=== PATIENT | male | born 1945 | race Caucasian/White ===

== ENCOUNTER 2020-01-01 06:44 | Day surgery (SDC) | payer MEDICARE ==
[~2020-01-01] VITALS: Ht 165.1 cm; Wt 89.6 kg
[2020-01-01] MEDS ORDERED: SODIUM CHLORIDE 0.9% 1,000 ML IV SCH (08:00)
[2020-01-01] MEDS ORDERED: HYDR25TA6 PO (08:26)
[2020-01-01] MEDS ORDERED: PRED5TAB19 PO (08:26)
[2020-01-01] MEDS ORDERED: TACR1CAP5 PO (08:26)
[2020-01-01] MEDS ORDERED: ATOR20TA37 PO (08:26)
[2020-01-01] MEDS ORDERED: metoprolol PO (08:26)
[2020-01-01] MEDS ORDERED: sodium bicarb PO (08:26)
[2020-01-01] MEDS ORDERED: TAMS-11 PO (08:26)
[2020-01-01] MEDS ORDERED: GABA600T7 PO (08:26)
[2020-01-01] MEDS ORDERED: LOSA100T14 PO (08:26)
[2020-01-01] MEDS ORDERED: HUM100VI6 SQ (08:26)
[2020-01-01] MEDS ORDERED: mycophenolate PO (08:26)
[2020-01-01] MEDS ORDERED: AMLO-150 PO (08:26)
[2020-01-01 08:27] VITALS: BP 163/73
[2020-01-01 08:39] LABS: INTERNATIONAL NORMALIZED RATIO 0.94 (0.93-1.1); PROTHROMBIN TIME 9.7 Seconds (9.6-11.5)
[2020-01-01] MEDS ORDERED: NALOXONE 1 MG/ML, 2ML ONE (09:31)
[2020-01-01] MEDS ORDERED: FENTANYL PF 100 MCG/2ML ONE (09:31)
[2020-01-01] MEDS ORDERED: MIDAZOLAM 1 MG/ML, 5ML ONE (09:31)
[2020-01-01] MEDS ORDERED: FLUMAZENIL 0.1 MG/1 ML, 5ML ONE (09:31)
== END 2020-01-01 11:30 | disposition home or self-care (01) ==
LOC: OUT 06:44 → EDSTATUS 09:00 → OUT 11:30
PROVIDERS: ATTEND Internal Medicine Nephrology
DX: R80.9 Proteinuria, unspecified (principal); E11.22 Type 2 diabetes mellitus with diabetic chronic kidney disease; I12.9 Hypertensive chronic kidney disease with stage 1 through stage 4 chronic kidney disease, or unspecified chronic kidney disease; N18.4 Chronic kidney disease, stage 4 (severe); D63.1 Anemia in chronic kidney disease; N25.81 Secondary hyperparathyroidism of renal origin; E78.5 Hyperlipidemia, unspecified; E55.9 Vitamin D deficiency, unspecified; Z79.4 Long term (current) use of insulin; Z79.899 Other long term (current) drug therapy; Z85.46 Personal history of malignant neoplasm of prostate; Z87.891 Personal history of nicotine dependence; Z88.8 Allergy status to other drugs, medicaments and biological substances; Z94.0 Kidney transplant status
CPT/HCPCS: 36415; 50200; 77012; 85610; 88300; 99156; 99157; J2250; J3010; J2310